=== PATIENT | female | born 1970 | race Caucasian/White ===

== ENCOUNTER 2018-05-11 16:03 | Emergency (ER) | payer SELFPAY ==
[~2018-05-11] VITALS: Ht 160 cm; Wt 70.8 kg
[2018-05-11 16:21] VITALS: BP 133/66
--- NOTE | 2018-05-11 16:26 | NUR ---
PT TO ER BED 9
--- NOTE | 2018-05-11 16:35 | NUR ---
C/O CHEST PAIN THAT RADIATES TO THE BACK STARTING THIS MORNING. PT STATES SHE WAS RECENTLY DIAGNOSED WITH BRONCHITIS. PAIN DESCRIBED PRESSURE, 5/10. LUNG SOUNDS CLEAR BILATERAL, -COUGH, [id number], VSS, BED IS DOWN, LOCKED, BED RAIL X 1, ERMD NOTIFIED OF PATIENT STATUS HX: DENIES RX: DENIES
--- NOTE | 2018-05-11 16:40 | NUR ---
Patient being evaluated by DR. DENNY at bedside.
--- NOTE | 2018-05-11 17:31 | NUR ---
LAB AT BEDSIDE
[2018-05-11 17:35] LABS: BASOPHILS % (AUTO) 0.2 % (0.0-2.0); EOSINOPHILS % (AUTO) 0.2 % (0.0-4.0); HEMATOCRIT 35.7 % (36-48); HEMOGLOBIN 11.5 g/dL (12.0-16.0); LYMPHOCYTES # (AUTO) 1.3 K/uL (2.5-16.5); MEAN CORPUSCULAR HEMOGLOBIN 24 pg (27-31); MEAN CORPUSCULAR HGB CONC 32 g/dL (33-37); MONOCYTES # (AUTO) 0.6 K/uL (0.8-1.0); MONOCYTES % (AUTO) 7.2 % (1.7-9.3); NEUTROPHILS # (AUTO) 6.8 K/uL (1.8-7.7); NEUTROPHILS % (AUTO) 77.4 % (42.2-75.2); PLATELET COUNT (AUTO) 229 K/uL (140-450); RED CELL DISTRIBUTION WIDTH 18.1 % (11.6-13.7); WHITE BLOOD COUNT (AUTO) 8.8 K/uL (4.8-10.8)
[2018-05-11 17:47] LABS: ANION GAP 9.1 (8-16); CARBON DIOXIDE 28.8 mmol/L (21-32); CREATININE 0.9 mg/dL (0.6-1.3); POTASSIUM 3.9 mmol/L (3.5-5.1)
[2018-05-11 17:52] LABS: ALBUMIN 3.3 g/dL (3.4-5.0); TOTAL BILIRUBIN 0.5 mg/dL (0.0-1.0)
[2018-05-11 18:35] VITALS: BP 127/86
--- NOTE | 2018-05-11 18:46 | NUR ---
Patient discharged with v/s stable. Written and verbal after care instructions given and explained. Patient alert, oriented and verbalized understanding of instructions. Ambulatory with steady gait. All questions addressed prior to discharge. ID band removed. Patient advised to follow up with PMD. INSTRUCTED TO FOLLOW UP WITH PCP REGUARDING LIVER ENZYMES. Opportunity to ask questions provided and answered.
== END 2018-05-11 18:46 | disposition home or self-care (01) ==
LOC: MED 16:03
DX: K75.9 Inflammatory liver disease, unspecified (principal); R07.89 Other chest pain; M54.9 Dorsalgia, unspecified
CPT/HCPCS: 36415; 71045; 80053; 81025; 83690; 84484; 85025; 93005; 99284; Q0092